=== PATIENT | male | born 1965 | race Caucasian/White ===

== ENCOUNTER 2021-06-10 08:46 | Emergency (ER) | payer OTHER, SELFPAY ==
[2021-06-10 08:49] VITALS: BP 151/85; PULSE 77; RESP 16; TEMP 36.2; O2SAT 99
--- NOTE | 2021-06-10 09:04 | ED.GENADUL_ITS ---
Discharge Plan Disposition Patient Disposition: HOME Condition: Stable Discharge Details Clinical Impression: Cellulitis of foot Primary Care Provider: Rosa Briggs ED Provider: Jaxon Reynolds Home Meds and New Rx's Prescriptions: New sulfamethoxazole-trimethoprim [Bactrim DS] 800-160 mg tablet 1 tab PO BID Qty: 20 RF: 0 Discharge Instructions Instructions: Cellulitis (ED) Additional Instructions: Wound culture is pending, results should be back in the next 48 hours. Take Bactrim as directed. Rest, elevate, warm compresses every 2 hours for 20 minutes. Please watch for new or worsening symptoms and return to the ER for any concerns. Ovgu-znn-enmyxzm creams such as Lotrimin can be used as directed for potential fungal infection. You may also use Domeboro which can help dry out the area. I do recommend reaching out your primary care office on Saturday to discuss your ongoing symptoms and need for outpatient reevaluation. Medical Decision Making 56-year-old male reports left foot infection after an eczema outbreak. Based upon his description this does not sound as though it initiated as a fungal infection but obviously cannot rule this out completely. Patient appears well, nontoxic, nonseptic. Infection appears to be localized. Likely an eczema outbreak with a superimposed cellulitis. Plan is to obtain culture, initiate oral Bactrim therapy. Also discussed ejah-iec-rxcwbbo Domeboro cream to help with the localized irritation and serosanguineous fluid, as well as using sxux-ser-hoayeou Lotrimin which may be beneficial if there was a fungal component to the initial rash. Patient is comfortable with this plan and has no additional questions or concerns. Standard discharge and return precautions given. Patient will reach out to his primary care team on Saturday to discuss outpatient reevaluation. This documentation was generated using [employer] system, please disregard any oddities of phrase or misspellings. Medical Records Medical records reviewed: Yes I reviewed the patient's medical records. HPI General Mode of arrival: ambulatory . Date/Time Provider Initiated Documentation: 06/10/21 08:53 . Limitations to Documentation: no limitations . Information obtained by: patient . HPI Narrative: This is a 56-year-old male, denies significant past medical history, presenting to the ER complaining of a left foot infection. Patient states that he had an eczema outbreak couple of weeks ago on his left foot, subsequently went into a hot tub and also went swimming in a fresh body of water. He then developed redness and mild pain to the area. He was seen at his local urgent care, initially placed on Levaquin, evaluated once again and placed on Keflex for 7 days. Patient states that after the Keflex his symptoms almost completely resolved but now have returned back to baseline over the past 24-48 hours. Patient denies fever, moderate or severe pain, redness tracking up his foot into his ankle or leg. He reports that the area is draining a clear fluid. Denies rash elsewhere on his body. Denies numbness, tingling, weakness. No additional questions or concerns at this time Related Data Home Medications Medication Instructions Recorded Confirmed sulfamethoxazole-trimethoprim 1 tab PO BID #20 tab 06/10/21 [Bactrim DS] Previous Rx's Medication Instructions Recorded sulfamethoxazole-trimethoprim 1 tab PO BID #20 tab 06/10/21 [Bactrim DS] Allergies Allergy/AdvReac Type Severity Reaction Status Date / Time No Known Allergies Allergy Unverified 06/10/21 08:52 General Stated Complaint: GenMedical SANYA: 4 Review of Systems Constitutional Constitutional: Denies fever(s) and Denies weakness Musculoskeletal Musculoskeletal: Denies numbness and Denies tingling Integumentary/Breasts Skin/Breast: Reports erythema and Reports rash Neurologic Neurologic: Denies numbness, Denies tingling and Denies weakness [facility] Social History Smoking/Tobacco Use Status: Never Smoking risk assessment performed?: Yes Alcohol Intake: never Drug use: Never Substance use type: does not use Do you feel safe at home: Yes Do you feel safe in your relationship?: Yes Exam Const General: cooperative, healthy appearing, comfortable and no acute distress Orientation: alert and awake [facility] Head: normal to inspection, normocephalic and atraumatic Eyes Conjunctivae: conjunctivae normal Neck Neck: normal visual inspection, trachea midline and supple Resp Effort & Inspection: normal respiratory effort and able to speak in complete sentences Cardio Rate: regular rate Rhythm: regular rhythm Skin General skin exam: erythema Neuro General: patient alert, patient awake, moves all extremities and no focal motor deficits Cognition: normal cognition Speech: speech normal Gait: normal gait Motor: muscle tone normal throughout Sensory Exam: no sensory deficits noted Extrem General: full ROM, capillary refill normal and no calf tenderness Ankle/foot/toe images: 1. Diffuse, patchy, crusted lesions with localized swelling, erythema, warmth, draining a serosanguineous fluid. Normal capillary refill. There is no lymphangitic streaking. Normal dorsalis pedal pulse. The rash is primarily on the dorsal aspect of the foot and toes, does not really extend between the toes. Psych Appearance: grossly normal Mental Status: mental status grossly normal Course Vital Signs Vital signs: Vital Signs Temperature 36.2 C L 06/10/21 08:49 Pulse 77 06/10/21 08:49 Respiratory Rate 16 06/10/21 08:49 Blood Pressure 151/85 H 06/10/21 08:49 Pulse Oximetry 99 06/10/21 08:49 Temperature 36.2 C L 06/10/21 08:49 Temperature Source Skin 06/10/21 08:49 Pulse 77 06/10/21 08:49 Respiratory Rate 16 06/10/21 08:49 Respiratory Effort Non-Labored 06/10/21 08:54 Respiratory Depth Normal 06/10/21 08:54 Respiratory Pattern Normal 06/10/21 08:54 Blood Pressure 151/85 H 06/10/21 08:49 Pulse Oximetry 99 06/10/21 08:49 Oxygen Delivery Method Room Air 06/10/21 08:49 Oxygen Flow Rate 0 06/10/21 08:49 Pain Level 0 06/10/21 08:49 Lab/Test Results Lab/Test Results: 06/10/21 09:03 Foot - Left Wound Culture - Pending 06/10/21 09:03 Foot - Left Gram Stain - Pending
== END 2021-06-10 09:13 | disposition home or self-care (01) ==
PROVIDERS: Emergency Provider Physician Assistant; PCP Family Medicine
DX: L03.116 Cellulitis of left lower limb (principal)
CPT/HCPCS: 87077; 99283; 87070; 87186; 87205

== ENCOUNTER 2021-06-26 17:13 | Outpatient (REF) | payer OTHER, SELFPAY | END 2021-06-26 17:14 | disposition home or self-care (01) | LOC: NCHCN 17:13 | PROVIDERS: PCP Family Medicine; Visit Provider Nurse Practitioner Family | DX: R21 Rash and other nonspecific skin eruption (principal) | CPT/HCPCS: 87077; 87070; 87186; 87205 ==

== ENCOUNTER 2021-07-24 16:19 | Outpatient (REF) | payer OTHER, SELFPAY ==
[2021-07-24 20:45] LABS: Abs Immature Grans 0.02 10^3/uL (0.0-0.06); Absolute Basophil Count 0.04 10^3/uL (0.0-0.2); Absolute Eosinophil Count 0.07 10^3/uL (0.0-0.7); Absolute Lymphocyte Count 2.07 10^3/uL (1.2-3.4); Absolute Monocyte Count 0.49 10^3/uL (0.1-0.8); Absolute Neutrophil Count 3.72 10^3/uL (1.2-6.7); Basophils % 0.6; Eosinophils % 1.1; HCT 41.9 % (40.0-50.0); HGB 13.7 g/dL (13.5-17.5); Immature Grans % 0.3; Lymphocytes % 32.3; MCH 30.2 pg (27.0-33.0); MCHC 32.7 % (32.0-36.0); MCV 92.5 fL (80-95); MPV 10.5 fL (8.0-11.0); Monocytes % 7.6; Neutrophils % 58.1; Nucleated RBC 0 %; Platelet Count 232 10^3/uL (130-400); RBC 4.53 10^6/uL (4.36-5.78); RDW 13.1 % (11.8-14.1); RDW-SD 44.4 fL; WBC 6.41 10^3/uL (4.4-10.8)
[2021-07-24 20:51] LABS: ESR 7 mm/hr (0-20)
[2021-07-24 21:06] LABS: Hemoglobin A1C 5.7 % (<5.7)
== END 2021-07-24 16:20 | disposition home or self-care (01) ==
LOC: NCHCN 16:19
PROVIDERS: PCP Family Medicine; Visit Provider Nurse Practitioner Family
DX: R21 Rash and other nonspecific skin eruption (principal); L03.116 Cellulitis of left lower limb
CPT/HCPCS: 85652; 83036; 85025; 86140; 87070

== ENCOUNTER 2022-01-03 16:18 | Outpatient (REF) | payer OTHER, SELFPAY ==
[2022-01-03 20:25] LABS: Bacteria Negative HPF (Negative); C & S Indicated? No; Casts Negative LPF (Negative); Crystals Negative HPF (Negative); Epithelial Cells Negative HPF (Negative); Mucus Negative (Negative); Other Cells Negative (Negative); RBC Negative HPF (0-2); WBC 0-2 HPF (0-5)
== END 2022-01-03 16:19 | disposition home or self-care (01) ==
LOC: NCHCN 16:18
PROVIDERS: PCP Family Medicine; Visit Provider Nurse Practitioner Family
DX: R31.9 Hematuria, unspecified (principal)
CPT/HCPCS: 81015